=== PATIENT | male | born 1945 | race Caucasian/White ===

== ENCOUNTER → 2022-02-01 | Outpatient (CLI) | payer OTHER ==
[~2022-02-01] MED LIST: CEPH500 PO; LOVA40 PO; METO25ER PO; RANI150
[2022-02-01 13:29] LABS: BASOPHILS ABSOLUTE AUTO 0.04 K/mm3 (0.00-0.23); BASOPHILS PERCENT AUTO 1 % (0-2); EOSINOPHILS ABSOLUTE AUTO 0.13 K/mm3 (0.00-0.68); EOSINOPHILS PERCENT AUTO 2 % (0-6); Hemoglobin 15.5 g/dL (13.5-17.5); IMMATURE GRAN ABSOLUTE AUTO 0.02 K/mm3 (0.00-0.10); IMMATURE GRAN PERCENT AUTO 0 % (0-1); LYMPHOCYTES ABSOLUTE AUTO 1.42 K/mm3 (0.84-5.20); LYMPHOCYTES PERCENT AUTO 25 % (21-46); MONOCYTES ABSOLUTE AUTO 0.56 K/mm3 (0.16-1.47); MONOCYTES PERCENT AUTO 10 % (4-13); Mean Corpuscular HGB Conc 33.7 g/dL (31.5-36.5); Mean Corpuscular Volume 89 fL (80-100); Mean Platelet Volume 9.8 fL (9.1-12.4); NEUTROPHILS PERCENT AUTO 62 % (41-73); Platelet Count 173 K/mm3 (150-400); RDW Coefficient Variation 12.8 % (11.7-14.2); RDW Standard Deviation 41.6 fL (35.1-46.3); Red Blood Cell Count 5.16 M/mm3 (4.30-5.90); White Blood Cell Count 5.77 K/mm3 (4.00-11.30)
[2022-02-01 13:52] LABS: Alanine Aminotransfer (ALT/SGP 44 U/L (12-78); Albumin/Globulin Ratio 1.3 (0.8-1.8); Alk Phos 61 U/L (40-126); Anion Gap 8 mmol/L (6-16); Aspartate Aminotrans (AST/SGOT 20 U/L (12-37); Bilirubin, Total 0.6 mg/dL (0.1-1.0); Blood Urea Nitrogen 21 mg/dL (8-24); Bun/Creatinine Ratio 19.3 (12.0-20.0); CO2, Blood 28 mmol/L (21-32); Chloride, Blood 107 mmol/L (98-108); Creatinine, Blood 1.09 mg/dL (0.60-1.20); Free Thyroxine 0.84 ng/dL (0.70-1.60); Globulin, Blood 3.1 g/dL (2.2-4.0); Glomerular Filtration Rate >60 (60-); Glucose, Blood 108 mg/dL (70-99); Potassium, Blood 4.3 mmol/L (3.5-5.5); Sodium, Blood 143 mmol/L (136-145); Thyroid Stimulating Hormone 3.379 uIU/mL (0.360-4.800); Total Protein, Blood 7.1 g/dL (6.4-8.2)
== END ==
LOC: LAB SHORT 13:24
PROVIDERS: Physician Assistant
DX: E03.9 Hypothyroidism, unspecified (principal); R00.2 Palpitations
CPT/HCPCS: 80053; 84439; 84443; 84481; 85025

== ENCOUNTER 2022-10-08 09:41 | Day surgery (SDC) | payer OTHER ==
[~2022-10-08] VITALS: Ht 175.3 cm; Wt 72.2 kg
== END 2022-10-08 12:15 | disposition home or self-care (01) ==
LOC: ORSCSDS 09:41
PROVIDERS: Surgery
PROC: 0DBK8ZX Excision of Ascending Colon, Via Natural or Artificial Opening Endoscopic, Diagnostic (ICD-10-PCS; principal; 2022-10-08 11:00)
PROC: 0DBH8ZX Excision of Cecum, Via Natural or Artificial Opening Endoscopic, Diagnostic (ICD-10-PCS; principal; 2022-10-08 11:00)
DX: Z12.11 Encounter for screening for malignant neoplasm of colon (principal); Z86.010 Personal history of colon polyps; Z80.0 Family history of malignant neoplasm of digestive organs; D12.0 Benign neoplasm of cecum; D12.2 Benign neoplasm of ascending colon; K57.30 Diverticulosis of large intestine without perforation or abscess without bleeding; K21.9 Gastro-esophageal reflux disease without esophagitis; E78.5 Hyperlipidemia, unspecified; Z79.899 Other long term (current) drug therapy
CPT/HCPCS: 88305; J0330; J0461; J2405; J2704; J7120

== ENCOUNTER 2024-12-18 06:51 | Day surgery (SDC) | payer OTHER ==
[~2024-12-18] VITALS: Ht 175.3 cm; Wt 74.2 kg
[~2024-12-18 06:51] MED LIST changes: +Balanced Salt Epinephrine Irrigation Solution 500 mL IR PRN; +Gentamicin Ophth IR Soln 4 MG/0.4 ML SYR IR SCH; +Lidocaine HCl/Pf 1% 5 ML VIAL XX SCH; +PHENYLEPHRINE\\TROPICAMIDE\\TETRACAINE OPHTHALMIC DILATING SOLN RIGHTEYE PRN; +Povidone-Iodine 450 DROP/30 ML Solution ONE; +Povidone-Iodine 450 DROP/30 ML Solution RIGHTEYE SCH; +Tetracaine HCl/Pf 0.5% Opth Soln 4 ml ONE; +Vancomycin Ophth IR Soln 10 MG/0.2 ML SYR IR SCH
[2024-12-18] MEDS ORDERED: TADA10TA (07:11)
[2024-12-18] MEDS ORDERED: ATOR20 (07:12)
[2024-12-18] MEDS ORDERED: Flonase 0.05% N16 GM (07:12)
[2024-12-18] MEDS ORDERED: NS 1,000 ML IV ONE (07:19)
[2024-12-18] MEDS ORDERED: NS 500 ML IV ONE (07:35)
[2024-12-18] MEDS ORDERED: Midazolam HCl 1MG / ML 2ML Vial ONE (08:05)
[2024-12-18] MEDS ORDERED: FentaNYL Citrate 50 MCG/ML 2 ML Injection ONE (08:05)
--- NOTE | 2024-12-18 08:29 | NUR ---
12/18/24 0829 Ree Whittaker PT STATED HIS IODINE ALLERGY IS TO THE CONTRAST MEDIA VIA IV, AND HE HAS NO REACTION TO TOPICAL IODINE.
[2024-12-18 08:37] VITALS: BP 116/75
== END 2024-12-18 08:53 | disposition home or self-care (01) ==
LOC: ORSCSDS 06:51
PROVIDERS: Ophthalmology
PROC: 08RJ3JZ Replacement of Right Lens with Synthetic Substitute, Percutaneous Approach (ICD-10-PCS; principal; 2024-12-18 08:00)
DX: H25.13 Age-related nuclear cataract, bilateral (principal); H04.123 Dry eye syndrome of bilateral lacrimal glands; Z79.82 Long term (current) use of aspirin; Z79.899 Other long term (current) drug therapy
CPT/HCPCS: J2250; J3010; J7040; V2632